=== PATIENT | female | born 1965 | race Caucasian/White ===

== ENCOUNTER → 2019-01-05 | Day surgery (SDC) | payer OTHER ==
[~2019-01-05] MED LIST: ALEVE220 MG PO
--- NOTE | 2019-01-07 14:44 | OP ---
[address] [address] OPERATIVE REPORT Name: MARIANNA PAIGE Room: [facility]#: [id number] Admission: 01/05/19 Attend Phys: Jorge Gillespie II Discharge: Date of : 65 Report #: [id number] THIS REPORT FOR: //name// CC: ZACH FELICIANO Physician staff Jorge Gillespie DATE OF SERVICE: 01/05/2019 PREOPERATIVE DIAGNOSIS: Left trigger finger of index and long finger. POSTOPERATIVE DIAGNOSIS: Left trigger finger of index and long finger. PROCEDURE PERFORMED: Left trigger finger release of index and long finger. SURGEON: Jorge Gillespie II, DO [employer] OPERATOR: JAHAIRA Miller. ANESTHESIA: LMA. ESTIMATED BLOOD LOSS: Minimal. ANTIBIOTICS: Per operative record. DRAINS: None. COMPLICATIONS: None. CONDITION OF THE PATIENT: Stable to recovery room. BRIEF HISTORY: The patient was seen in the preoperative area as well as in the clinic prior. She did have extensive locking of the index and long finger. Conservative measures had failed and the patient elected to proceed with surgical intervention to treat her trigger fingers. PROCEDURE NOTE: The patient was taken to the operative suite, placed supine on the operating table and given appropriate anesthesia. The patient had well-padded tourniquet applied to the upper arm which was inflated to 250 mmHg after Esmarch exsanguination for duration of the procedure. She was sterilely prepped and draped. Surgery begun by transverse incision was made over the palm. This was carried down to subcutaneous tissues. The A1 chris for the index finger was then found and ligated in both proximal and distal directions and shown to be completely transected. The tendon was then brought out through the incision and inspected and shown to have only minor abrasion from the locking which had been extensive. A separate [place] [address] OPERATIVE REPORT Name: MARIANNA PAIGE Room: [facility]#: [id number] Admission: 01/05/19 Attend Phys: Jorge Gillespie II Discharge: Date of : 65 Report #: [id number] finger, was carried out through the subcutaneous tissues. The A1 chris was then ligated in both proximal and distal directions over the long finger in appropriate fashion. This tendon was also inspected and shown to be in excellent condition. A final irrigation performed to the wounds, wound was then closed with a nylon stitch. Dermabond dressing applied. The patient transported to the recovery room in stable condition. Counts were correct throughout the procedure. <ELECTRONICALLY SIGNED> By: Jorge Gillespie II, DO 01/07/19 [id number] [id number] Gillespie II, DO /nt
== END | disposition home or self-care (01) ==
LOC: M.SUR 09:38
DX: M65.322 Trigger finger, left index finger (principal); M65.332 Trigger finger, left middle finger; Z91.040 Latex allergy status; Z88.8 Allergy status to other drugs, medicaments and biological substances; Z79.899 Other long term (current) drug therapy